=== PATIENT | female | born 1975 | race Caucasian/White ===

== ENCOUNTER 2020-08-30 14:19 | Inpatient (IN) | payer OTHER, SELFPAY ==
[2020-08-30] VITALS (14 sets, daily range): BP systolic 90–118; BP diastolic 46–73; PULSE 58–93; RESP 16–19; TEMP 36.1–36.9; O2SAT 98–100; BMI 26.5
--- NOTE | 2020-08-30 17:22 | ED.DIZZY ---
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 Patient did not have a full LOC or falling, no other neurological symptoms that the patient is complaining of. Related Data Home Medications Medication Instructions Recorded Confirmed buspirone 1 tab PO BID 08/30/20 08/30/20 quetiapine 1 tab PO BEDTIME 08/30/20 08/30/20 sertraline 1 tab PO DAILY 08/30/20 08/30/20 Allergies Allergy/AdvReac Type Severity Reaction Status Date / Time No Known Allergies Allergy Unverified 07/23/20 17:18 N.K.D.A. Allergy Unknown Uncoded 04/05/17 00:00 Review of Systems Review of Systems: All other systems are reviewed and are negative Constitutional: Reports as per HPI and Reports no additional constitutional complaints Eyes: Reports as per HPI and Reports no additional eye complaints Reports system reviewed and no additional complaints, except as documented Cardiovascular: Reports as per HPI and Reports no additional cardiovascular complaints Respiratory: Reports as per HPI and Reports no additional respiratory complaints Gastrointestinal: Reports as per HPI and Reports no additional gastrointestinal complaints Genitourinary: Reports no additional female genitourinary complaints Musculoskeletal: Reports no additional musculoskeletal complaints Skin/Breast: Reports system reviewed and no additional complaints, except as docu Psychiatric: Reports no additional psychiatric complaints Endocrine: Reports no additional endocrine complaints Hematologic/Lymphatic: Reports no additional hematologic/lymphatic complaints Allergic/Immunologic: Reports no additional allergic/immunologic complaints Reports system reviewed and no additional complaints, except as documented and Reports Abnormal speech present [facility] Past Medical History Medical History Menorrhagia (~08/30/20) Microcytic anemia Social History Social History Smoking Status: Never smoker Use of substances other than those prescribed or required for medical reasons: No Advance Directives: No Advance Directives Information Provided: No Physical Exam Vital Signs: Vital Signs: Vital Signs Temp Pulse Resp BP Pulse Ox 08/30/20 19:13 78 16 90/53 L 100 08/30/20 17:55 93 118/50 L 08/30/20 17:51 79 113/65 08/30/20 17:49 77 99/57 L 08/30/20 17:35 98.4 F 76 18 110/62 100 Body Mass Index 26.5 vital signs have been reviewed as normal and appeared to be correct. Blood pressure normal. Heart rate normal. Respiration rate normal. Temperature normal. Oxygen saturation normal. Appearance: Alert. Oriented X3. No acute distress. Head: Normal external exam. Normocephalic. Atraumatic. No Davenport signs noted. No raccoon eyes noted Eyes: PERRLA. EOMI. Conjunctiva and sclera normal. Eyelids normal. ENT: EAC normal. TM's Normal. Pharynx normal. Uvula midline. Moist mucous membranes. No trismus noted. No drooling noted. No muffled voice noted. Neck: Normal inspection. Neck supple. FROM. No adenopathy. Thyroid Normal. No meningeal signs. No neck mass noted. CVS: Normal heart rate and rhythm. Heart sound normal. No murmurs noted. Pulses normal throughout. Respiratory: No respiratory distress. Painless inspiration. Breath sounds normal. No wheezes/rales/rhonchi noted. Chest nontender. No accessory muscle usage noted or decreased air movement noted. Abdomen: Soft and nontender. Bowel sounds normal in all 4 quadrants. No distention noted. No organomegaly noted. No visible injury noted. Back: No CVA tenderness. Full range of motion noted. Skin: Skin warm and dry. Normal skin color. Normal skin turgor. No rashes/lesions/lacerations noted. Extremities: No lower extremity edema. Extremities exhibit normal range of motion. Extremities nontender. Neuro: Oriented X 3. No motor deficit. No sensory deficit. Reflexes normal. exam: Normal external vaginal inspection, no active bleed, no blood clots in a vault. Course Course Course Narrative: 44 years old female otherwise healthy, presented with generalized weakness and dizziness when she get up, patient described menorrhagia for the past 13 days which is unusual for her. Will check CBC, hydrate with IV fluids, check urine for , re-evaluate and reassess. MDM - Dizziness MDM Narrative Medical decision making narrative: assessment and plan. 44-year-old female came in with menorrhagia and symptomatic anemia ( hemoglobin of 6.8). The case discussed with Dr. Mccabe we will recommended to transfuse blood, admit overnight for observation and he will reassess her in the morning. Lab Data Attestation: I reviewed the patient's lab results. Result diagrams: 08/30/20 17:49 08/30/20 17:49 Labs: Lab Results 08/30/20 08/30/20 08/30/20 Range/Units 17:49 17:49 17:55 WBC 7.9 (4.8-10.8) X10*3/uL RBC 3.37 L (4.20-5.50) X10*6/uL Hgb 6.9 L* (12.0-16.0) g/dl Hct 24.4 L (37-47) % MCV 72.4 L (80-98) fL MCH 20.5 L (27.0-33.0) pg MCHC 28.3 L (31.0-35.0) g/dl RDW 19.7 H (11.0-16.0) % Plt Count 338 (160-400) X10*3/uL MPV 10.7 (9.4-12.3) fL Immature Gran % (Auto) 0.1 (0.0-0.4) % Neut % (Auto) 59.0 (45-73) % Lymph % (Auto) 34.1 (20-40) % [place] % (Auto) 5.6 (2-11) % Eos % (Auto) 0.6 (0-4) % Baso % (Auto) 0.6 (0-2) % Lymph # (Auto) 2.7 (1.2-4.9) X10*3/uL [place] # (Auto) 0.4 (0.1-1.2) X10*3/uL Eos # (Auto) 0.1 (0.0-0.4) X10*3/uL Baso # (Auto) 0.1 (0.0-0.2) X10*3/uL Abs Immat Gran (auto) 0.01 (0.00-0.03) X10*3/uL Absolute Neuts (auto) 4.7 (2.0-8.3) X10*3/uL Absolute Nucleated RBC 0.000 (0.0-0.012) X10*3/uL Nucleated RBC % (auto) 0.0 (0.0-0.2) /100WBC Sodium 135 (135-145) mmol/L Potassium 4.2 (3.3-5.1) mmol/l Chloride 105 (96-108) mmol/L Carbon Dioxide 24 (22-29) mmol/L Anion Gap 10 L (12-20) BUN 11 (9-16) mg/dL Creatinine 0.76 (0.5-1.4) mg/dL Estim Creat Clear Calc 83.1 Estimated GFR > 60 Random Glucose 97 (60-115) mg/dL Calcium 8.8 (8.4-10.2) mg/dL Urine Color YELLOW Urine Appearance HAZY Urine pH 8.0 (5.0-8.0) Ur Specific [place] 1.015 (1.005-1.025) Urine Protein 1+ H (NEG-TRACE) MG/DL Urine Glucose (UA) NEG (NEG) MG/DL Urine Ketones NEG (NEG) MG/DL Urine Blood NEG (NEG) Urine Nitrite POS H (NEG) Ur Leukocyte Esterase NEG (NEG) Urine RBC 0 (0) /HPF Urine WBC 10-14 H (0-4) /HPF Ur Squamous Epith Cells 1+ /LPF Urine Bacteria 4+ /LPF Urine Test NEGATIVE (NEGATIVE) Blood Type Antibody Screen Crossmatch 08/30/20 Range/Units 19:21 WBC (4.8-10.8) X10*3/uL RBC (4.20-5.50) X10*6/uL Hgb (12.0-16.0) g/dl Hct (37-47) % MCV (80-98) fL MCH (27.0-33.0) pg MCHC (31.0-35.0) g/dl RDW (11.0-16.0) % Plt Count (160-400) X10*3/uL MPV (9.4-12.3) fL Immature Gran % (Auto) (0.0-0.4) % Neut % (Auto) (45-73) % Lymph % (Auto) (20-40) % [place] % (Auto) (2-11) % Eos % (Auto) (0-4) % Baso % (Auto) (0-2) % Lymph # (Auto) (1.2-4.9) X10*3/uL [place] # (Auto) (0.1-1.2) X10*3/uL Eos # (Auto) (0.0-0.4) X10*3/uL Baso # (Auto) (0.0-0.2) X10*3/uL Abs Immat Gran (auto) (0.00-0.03) X10*3/uL Absolute Neuts (auto) (2.0-8.3) X10*3/uL Absolute Nucleated RBC (0.0-0.012) X10*3/uL Nucleated RBC % (auto) (0.0-0.2) /100WBC Sodium (135-145) mmol/L Potassium (3.3-5.1) mmol/l Chloride (96-108) mmol/L Carbon Dioxide (22-29) mmol/L Anion Gap (12-20) BUN (9-16) mg/dL Creatinine (0.5-1.4) mg/dL Estim Creat Clear Calc Estimated GFR Random Glucose (60-115) mg/dL Calcium (8.4-10.2) mg/dL Urine Color Urine Appearance Urine pH (5.0-8.0) Ur Specific [place] (1.005-1.025) Urine Protein (NEG-TRACE) MG/DL Urine Glucose (UA) (NEG) MG/DL Urine Ketones (NEG) MG/DL Urine Blood (NEG) Urine Nitrite (NEG) Ur Leukocyte Esterase (NEG) Urine RBC (0) /HPF Urine WBC (0-4) /HPF Ur Squamous Epith Cells /LPF Urine Bacteria /LPF Urine Test (NEGATIVE) Blood Type O Positive Antibody Screen NEGATIVE Crossmatch See Detail Imaging Data Pelvic ultrasound: Radiologist's impression: The right ovary is not demonstrated. There is a 6 cm heterogeneous area of solid echotexture likely arising from the uterus. This is nonspecific but statistically could represent a fibroid. Because of a history of uterine bleeding and the absence of a previous study consider a follow-up study to evaluate the entire uterine contour and identify the right ovary Scores Additional Scores NIHSS: Comment: Discharge Plan Discharge Clinical Impression: Microcytic anemia Menorrhagia Qualifiers: Menorrhagia type: with regular cycle Qualified Code(s): N92.0 - Excessive and frequent menstruation with regular cycle Patient Disposition: Admitted As Inpatient
[2020-08-30 18:05] LABS: MANUAL DIFF FLAG NO
[2020-08-30 18:06] LABS: Glucose Urine UA NEG (NEG); Leukocyte Esterase Urine NEG (NEG); Nitrite Urine POS (NEG); Specific Gravity - Urine 1.015 (1.005-1.025); Urine Blood NEG (NEG); Urine Ketones NEG (NEG); Urine Protein 1+ MG/DL (NEG-TRACE)
[2020-08-30 18:07] LABS: Appearance Urine HAZY; Color Urine YELLOW
[2020-08-30 18:08] LABS: Imm Gran Abs Auto 0.01 X10*3/uL (0.00-0.03); Imm Gran Pct Auto 0.1 % (0.0-0.4); Red Cell Distribution Width 19.7 % (11.0-16.0)
--- NOTE | 2020-08-30 18:10 | PC.NURSE ---
pt alert and oriented, skin pale in appearance, reports heavy vaginal bleeding x12 days with clots, reports dizziness getting worse
[2020-08-30 18:12] LABS: Basophils Absolute Auto 0.1 X10*3/uL (0.0-0.2); Basophils Percent Auto 0.6 % (0-2); Eosinophils Absolute Auto 0.1 X10*3/uL (0.0-0.4); Eosinophils Percent Auto 0.6 % (0-4); Hematocrit 24.4 % (37-47); Lymphocytes Absolute Auto 2.7 X10*3/uL (1.2-4.9); Lymphocytes Percent Auto 34.1 % (20-40); Mean Corpuscular HGB Conc 28.3 g/dl (31.0-35.0); Mean Corpuscular Hemoglobin 20.5 pg (27.0-33.0); Mean Corpuscular Volume 72.4 fL (80-98); Mean Platelet Volume 10.7 fL (9.4-12.3); Monocytes Absolute Auto 0.4 X10*3/uL (0.1-1.2); Monocytes Percent Auto 5.6 % (2-11); Neutrophils Absolute Auto 4.7 X10*3/uL (2.0-8.3); Platelet Count 338 X10*3/uL (160-400); Red Blood Count 3.37 X10*6/uL (4.20-5.50); White Blood Count 7.9 X10*3/uL (4.8-10.8)
[2020-08-30 18:13] LABS: Bacteria Urine 4+ /LPF; RBC Urine 0 /HPF (0); Squamous Epithelial Cell Urine 1+ /LPF; UPreg QC Valid YES; Urine Pregnancy NEGATIVE (NEGATIVE)
[2020-08-30] MEDS: 0.9 % Sodium Chloride 500 ML 1000 ML IV (18:13)
[2020-08-30] MEDS: ondansetron HCL 4 MG/2 ML VIAL IVPUSH ×2 (18:13→20:54)
[2020-08-30 18:26] LABS: Anion Gap 10 (12-20); Blood Urea Nitrogen 11 mg/dL (9-16); Calcium 8.8 mg/dL (8.4-10.2); Carbon Dioxide 24 mmol/L (22-29); Chloride 105 mmol/L (96-108); Creatinine Clr Calc Pharmacy 83.1; Estimated Glomerular Filt Rate > 60; Glucose Random 97 mg/dL (60-115); Potassium 4.2 mmol/l (3.3-5.1); Sodium 135 mmol/L (135-145)
[2020-08-30 19:52] LABS: Hemoglobin 6.9 g/dl (12.0-16.0)
--- NOTE | 2020-08-30 19:58 | US_ITS ---
EXAMINATION: PELVIC ULTRASOUND CLINICAL INFORMATION: Menorrhagia COMPARISON: None TECHNIQUE: Transcutaneous pelvic ultrasound. The patient was asked to void completely reexamined vaginally to better assess any cause for uterine bleeding FINDINGS: Transcutaneous scanning does not demonstrate any large suspicious mass or collection. There is no suspicious abnormality in the expected region of vagina. The estimated cervical length is 3.9 cm. There are circumscribed oval anechoic spaces along the cervical canal consistent with nabothian cysts. The uterus is anteverted. The uterus measures approximately 11.3 x 6.4 x 7.7 cm. The endometrium appears homogeneous and smooth. The endometrium measures approximately 0.6 cm. The myometrium is heterogeneous. There is a rounded area of altered echotexture which measures approximately 6.0 x 4.2 x 6.5 cm. This has heterogeneous internal echotexture. There is internal color signal The right ovary is not definitely identified. No suspicious mass or collection in the right adnexa. The left ovary measures approximately 5.9 x 4.2 x 3.3 cm. There is color signal present. There are multiple left ovarian cysts. The largest measures 3.1 cm. No suspicious mural nodules or thick septations. No free pelvic fluid US/US pelvic complete IMPRESSION: The right ovary is not demonstrated. There is a 6 cm heterogeneous area of solid echotexture likely arising from the uterus. This is nonspecific but statistically could represent a fibroid. Because of a history of uterine bleeding and the absence of a previous study consider a follow-up study to evaluate the entire uterine contour and identify the right ovary
--- NOTE | 2020-08-30 20:01 | PM.IMHP ---
History of Present Illness Date of Service: 08/30/20 Chief Complaint: dizziness This is a 44-year-old female with no significant past medical history who presents to the hospital complaining of dizziness. Patient reports that she has been having her period since the of this month nonstop heavy. Has used up to 90 pads until today. She reports that it only slow down about 2 days ago. She has no abdominal pain, she feels dizzy mostly when she is getting up from seated or sleeping positions. She has no palpitations. She has no headache or change in vision. She has not had any loss of consciousness. patient reports a consistent monthly menstrual cycle With no heavy periods. She usually gets her menstrual cycle the same day lasts about 1 or 2 days and ends every month. This month is the 1st time that this has happened. Patient reports no chest pain, shortness of breath, abdominal pain, nausea or vomiting, no diarrhea or constipation. She denies any urinary symptoms and no lower extremity edema. on arrival to the ED hemodynamically stable with no significant abnormal vitals labs are significant for hemoglobin 6.9, hematocrit of 24.4, MCV of 72.4, unremarkable chemistry, UA positive for nitrites and WBC patient receiving PRBC in the ED And will be admitted for further management. Past medical history: Denies past surgical history: Tubal ligation 20 years ago family history: Significant for sister who had breast cancer, otherwise no history of cancer in mother on sore any other significant family member social history: Comes from home, denies any tobacco alcohol or illicit drugs Review of Systems Review of Systems: Yes all other systems are reviewed and are negative [facility] Medical History (Updated 08/30/20 @ 20:24 by Mariano Ramirez MD) Menorrhagia (~08/30/20) Microcytic anemia Social History Smoking Status: Never smoker Use of substances other than those prescribed or required for medical reasons: No Advance Directives: No Advance Directives Information Provided: No Meds Allergies Allergy/AdvReac Type Severity Reaction Status Date / Time No Known Allergies Allergy Unverified 07/23/20 17:18 N.K.D.A. Allergy Unknown Uncoded 04/05/17 00:00 Home Medications Medication Instructions Recorded Confirmed Type buspirone 1 tab PO BID 08/30/20 08/30/20 History quetiapine 1 tab PO BEDTIME 08/30/20 08/30/20 History sertraline 1 tab PO DAILY 08/30/20 08/30/20 History Physical Exam Vital Signs and Narrative: Vital Signs: Last Vital Signs Temp 98.4 F 08/30/20 17:35 Pulse 78 08/30/20 19:13 Resp 16 08/30/20 19:13 BP 90/53 L 08/30/20 19:13 Pulse Ox 100 08/30/20 19:13 Body Mass Index 26.5 Const: General: cooperative and no acute distress Orientation/consciousness: patient oriented x3 Eyes: General: appearance normal, both eyes and all related structures Pupils: Equal, round and reactive pupils present Resp: Effort & Inspection: normal respiratory effort and able to speak in complete sentences Auscultation: clear to auscultation bilaterally Cardio: Rate: regular rate Rhythm: regular rhythm GI: Palpation (GI): Soft to palpation Auscultation: normal bowel sounds Skin: General skin exam: no rashes or lesions noted Neuro: General: patient oriented x3 Cranial nerves: Yes Equal, round and reactive pupils present Cognition (Neuro): normal cognition Extrem: General: Yes normal to inspection and Yes no pedal edema Results Labs Labs: Laboratory Tests 08/30/20 08/30/20 08/30/20 17:49 17:49 17:55 WBC 7.9 RBC 3.37 L Hgb 6.9 L* Hct 24.4 L MCV 72.4 L MCH 20.5 L MCHC 28.3 L RDW 19.7 H Plt Count 338 MPV 10.7 Immature Gran % (Auto) 0.1 Neut % (Auto) 59.0 Lymph % (Auto) 34.1 [place] % (Auto) 5.6 Eos % (Auto) 0.6 Baso % (Auto) 0.6 Lymph # (Auto) 2.7 [place] # (Auto) 0.4 Eos # (Auto) 0.1 Baso # (Auto) 0.1 Abs Immat Gran (auto) 0.01 Absolute Neuts (auto) 4.7 Absolute Nucleated RBC 0.000 Nucleated RBC % (auto) 0.0 Sodium 135 Potassium 4.2 Chloride 105 Carbon Dioxide 24 Anion Gap 10 L BUN 11 Creatinine 0.76 Estim Creat Clear Calc 83.1 Estimated GFR > 60 Random Glucose 97 Calcium 8.8 Urine Color YELLOW Urine Appearance HAZY Urine pH 8.0 Ur Specific [place] 1.015 Urine Protein 1+ H Urine Glucose (UA) NEG Urine Ketones NEG Urine Blood NEG Urine Nitrite POS H Ur Leukocyte Esterase NEG Urine RBC 0 Urine WBC 10-14 H Ur Squamous Epith Cells 1+ Urine Bacteria 4+ Urine Test NEGATIVE Blood Type Crossmatch 08/30/20 19:21 WBC RBC Hgb Hct MCV MCH MCHC RDW Plt Count MPV Immature Gran % (Auto) Neut % (Auto) Lymph % (Auto) [place] % (Auto) Eos % (Auto) Baso % (Auto) Lymph # (Auto) [place] # (Auto) Eos # (Auto) Baso # (Auto) Abs Immat Gran (auto) Absolute Neuts (auto) Absolute Nucleated RBC Nucleated RBC % (auto) Sodium Potassium Chloride Carbon Dioxide Anion Gap BUN Creatinine Estim Creat Clear Calc Estimated GFR Random Glucose Calcium Urine Color Urine Appearance Urine pH Ur Specific [place] Urine Protein Urine Glucose (UA) Urine Ketones Urine Blood Urine Nitrite Ur Leukocyte Esterase Urine RBC Urine WBC Ur Squamous Epith Cells Urine Bacteria Urine Test Blood Type O Positive Crossmatch See Detail Assessment and Plan (1) Menorrhagia: Status: Acute (2) Iron deficiency anemia: Status: Deleted (3) Dizziness: Status: Acute (4) Microcytic anemia: Status: Acute (5) UTI (urinary tract infection): Status: Acute this is a 44-year-old female with no significant past medical history who presents to the hospital with history of menorrhagia for the past 2 weeks. She also has symptomatic anemia as a result. # dizziness - secondary to anemia in the setting of menorrhagia - denies any loss of consciousness, no shortness of breath, no chest pain, no vertigo. Plan: - Receiving blood transfusion at this time - reassess symptoms once transfusion complete and before discharge # menorrhagia - unclear etiology - patient denies any similar previous history, - reports history of breast cancer in sister plan: - Will obtain transvaginal and pelvic ultrasound - consult Ob Gyne # microcytic anemia - secondary to menorrhagia - symptomatic with dizziness - Hemoglobin of 6.9 plan: - receiving PRBC in the ED - will follow H&H post transfusion - OB Gyne consult for underlying cause of menorrhagia # UTI - UA positive - will start on ceftriaxone - send urine cultures DVT prophylaxis: SCDs date of service 08/30/2020
--- NOTE | 2020-08-30 20:03 | PC.NURSE ---
PT AMBULATORY TO BATHROOM WITH STEADY GAIT, PT GAVE ANOTHER URINE SAMPLE WITH NO VISABLE BLOOD. UNSURE IF INITIAL SAMPLE HAD BEEN OBTAINED. MD LAKHANI DID A QUICK PELVIC EXAM WITH SPECULUM, NO BLEED IN AREA OR ON SPECULUM. PT REPORTS BLEEDING HAS STOPPED FOR NOW. PT DENIES DIZZINESS.
[2020-08-30] MEDS: cefTRIAXone sodium 1 GM in 0.9 % Sodium Chloride 50 ML IV (20:32)
[2020-08-30] MEDS: Lactated Ringers 1,000 ML 999 ML IVCONT (20:33)
--- NOTE | 2020-08-30 20:33 | PC.NURSE ---
SPOKE WITH HOSPITALIST WHO PLACED ORDER FOR CEFTRIAXONE. URINE CULTURE IS FINE, NO NEED FOR BLOOD CULTURES.
--- NOTE | 2020-08-30 20:45 | PC.NURSE ---
PT BEGAN TO FEEL NAUSEOUS AFTER EATING, STARTED TO VOMIT A SMALL AMOUT. REQUESTED ZACARIAS.
--- NOTE | 2020-08-30 21:49 | PC.NURSE ---
PT RETURNED FROM ULTRASOUND, BLOOD ADMINISTERED BY MARIAM NEVAREZ.
[2020-08-30] MEDS: 0.9 % Sodium Chloride 1,000 ML 100 ML IVCONT (22:52)
[2020-08-30] MEDS: busPIRone HCl 5 MG TABLET 15 MG PO (22:52)
[2020-08-30] MEDS: 0.9 % Sodium Chloride Flush 3 ML SYRINGE IVFLUSH (22:52)
[2020-08-30] MEDS: QUEtiapine Fumarate 200 MG TABLET PO (22:52)
[2020-08-31] VITALS (9 sets, daily range): BP systolic 104–122; BP diastolic 52–77; PULSE 66–84; RESP 14–19; TEMP 36.2–36.6; O2SAT 98–100; BMI 27.6; BMI 28.5
[2020-08-31 06:09] LABS: MANUAL DIFF FLAG NO
[2020-08-31 06:17] LABS: Basophils Percent Auto 0.5 % (0-2); Eosinophils Absolute Auto 0.2 X10*3/uL (0.0-0.4); Hematocrit 30.4 % (37-47); Hemoglobin 9.2 g/dl (12.0-16.0); Imm Gran Abs Auto 0.01 X10*3/uL (0.00-0.03); Imm Gran Pct Auto 0.1 % (0.0-0.4); Lymphocytes Absolute Auto 3.5 X10*3/uL (1.2-4.9); Lymphocytes Percent Auto 45.5 % (20-40); Mean Corpuscular HGB Conc 30.3 g/dl (31.0-35.0); Mean Corpuscular Hemoglobin 23.1 pg (27.0-33.0); Mean Corpuscular Volume 76.4 fL (80-98); Mean Platelet Volume 10.7 fL (9.4-12.3); Monocytes Absolute Auto 0.7 X10*3/uL (0.1-1.2); Monocytes Percent Auto 8.5 % (2-11); Neutrophils Absolute Auto 3.3 X10*3/uL (2.0-8.3); Neutrophils Percent Auto 43.4 % (45-73); Platelet Count 264 X10*3/uL (160-400); Red Blood Count 3.98 X10*6/uL (4.20-5.50); Red Cell Distribution Width 19.3 % (11.0-16.0); White Blood Count 7.6 X10*3/uL (4.8-10.8)
[2020-08-31 06:43] LABS: Anion Gap 11 (12-20); Blood Urea Nitrogen 7 mg/dL (9-16); Calcium 8.2 mg/dL (8.4-10.2); Carbon Dioxide 22 mmol/L (22-29); Chloride 110 mmol/L (96-108); Creatinine Clr Calc Pharmacy 100.7; Estimated Glomerular Filt Rate > 60; Glucose Random 82 mg/dL (60-115); Potassium 4.1 mmol/l (3.3-5.1); Sodium 139 mmol/L (135-145)
[2020-08-31] MEDS: 0.9 % Sodium Chloride Flush 3 ML SYRINGE IVFLUSH (07:23)
[2020-08-31] MEDS: 0.9 % Sodium Chloride 1,000 ML 100 ML IVCONT ×2 (08:44→20:39)
--- NOTE | 2020-08-31 08:53 | MHC.CM.PN ---
pt lives alone, she reports that she is independent in her care. 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 she does have family that lives in the area and can help her should she need it. this will include a ride home at dc. pt denies the need for vna at dc. dc plan is home no svcs. cm to cont. to follow.
--- NOTE | 2020-08-31 09:53 | P.CDIC_ITS ---
CDI Concurrent Query Service Date: 09/10/20 Documentation Clarification: Please clarify if you are treating a proba ble/suspected/likely or confirmed: Acute blood loss anemia Please specify if known wrong provider Provider Response: Other Other Diagnosis: wrong provider PLEASE DO NOT DELETE/MODIFY EXISTING CONTENT Additional information is needed in order to code to the highest accuracy and appropriate Severity of Illness (SOI). Please clarify the information noted below in your progress notes and discharge summary. Risk Factors/Clinical Indicators/Treatments Dizziness, weakness in the setting of menorrhagia transfused in Ed. HGB 6.9 BP 99/57 OBGYN consult receiving blood tranfusion, reassess once transfusion is complete. f/u h & h CDS: Shanta Yost CCS, CDIS Contact Number: [phone] Please Review the information above and exercise your independent professional judgment in responding to the query. If you concur, pleas document in the PROGRESS NOTES and DISCHARGE SUMMARY. If you do not agree with the query, please document in the query above. THIS QUERY IS PART OF THE PERMANENT MEDICAL RECORD
--- NOTE | 2020-08-31 09:56 | PM.GYNCN ---
[employer] - CN: HPI Data of Consult Requesting Physician: Daren Briseno MD Primary Care Provider: Unknown Physician Consult Narrative Narrative: Janet Chatman is a 44 year old female 0 presented the yesterday emergency room after a long 2 week history of heavy vaginal bleeding associated with blood clots. Hematocrit was 24 patient was admitted received 2 units of blood transfusion. Ultrasound done showed a 6 x 6.5 cm myoma and simple ovarian cyst. Last Pap smear was 6 months ago last mammogram was 2 years ago according to the patient. cc:: CC: Daren Briseno MD Meds Allergies Allergy/AdvReac Type Severity Reaction Status Date / Time No Known Allergies Allergy Verified 08/31/20 01:19 Home Medications Medication Instructions Recorded Confirmed Type buspirone 1 tab PO BID 08/30/20 08/30/20 History quetiapine 1 tab PO BEDTIME 08/30/20 08/30/20 History sertraline 1 tab PO DAILY 08/30/20 08/30/20 History [employer] - Results Labs CBC & Chem 7: 08/31/20 05:29 08/31/20 05:29 Labs: Short CBC 08/30/20 08/31/20 Range/Units 17:49 05:29 WBC 7.9 7.6 (4.8-10.8) X10*3/uL Hgb 6.9 L* 9.2 L D (12.0-16.0) g/dl Hct 24.4 L 30.4 L D (37-47) % Plt Count 338 264 (160-400) X10*3/uL BMP 08/30/20 08/31/20 17:49 05:29 Sodium 135 139 Potassium 4.2 4.1 Chloride 105 110 H Carbon Dioxide 24 22 BUN 11 7 L Creatinine 0.76 0.65 Calcium 8.8 8.2 L Urine 08/30/20 Range/Units 17:55 Urine Color YELLOW Urine Appearance HAZY Urine pH 8.0 (5.0-8.0) Ur Specific [place] 1.015 (1.005-1.025) Urine Protein 1+ H (NEG-TRACE) MG/DL Urine Glucose (UA) NEG (NEG) MG/DL Urine Test NEGATIVE (NEGATIVE) Antibody Screen Antibody Screen NEGATIVE 08/30/20 19:21 Assessment and Plan (1) Menorrhagia: Qualifiers: Menorrhagia type: with regular cycle Qualified Code(s): N92.0 - Excessive and frequent menstruation with regular cycle Status: Acute Discussed with the patient the different causes of abnormal bleeding including thyroid, prolactin disorders, uterine and ovarian pathology, endometrial hyperplasia , carcinoma and other potential causes. Discussed with the patient the work up including CBC (to r/o anemia), TSH, pelvic Ultrasound, HCG all done, endometrial biopsy to r/o endometrial pathology. All questions answered and the patient verbalized understanding will have w/u done and EMB scheduled will check the results and treat accordingly. Discussed with the patient the results of the work up done and options of treatment including Lysteda, control pills, Mirena IUD, endometrial ablation and hysterectomy. All pros, cons, risks and benefits if each option was discussed with the patient and the patient decided to go ahead with Mirena IUD so a more detailed discussion about it was conducted including mechanism of action, risks (uterine perforation, infection, injury to bladder, bowel, displacement, and others) benefits (hypo menorrhea, amenorrhea, ...). GC/CT were taken and IUD inserted see procedure note. Before the procedure was started, discussed with the patient the endometrial biopsy procedure technique, alternatives (do nothing, hysteroscopy, or pelvic US), & all the risks associated with the procedure including but not limited to: bleeding , infection, uterine perforation, injury to bladder, vessels, bowels, possible need for transfusion with all its risks, and others. All questions were answered, the patient verbalized understanding and signed the consent. A speculum inserted inside the patient's vagina, the cervix was prepped with betadine. Then the Cervix was grasped with single tooth tenaculum, the uterus was sounded to 8 cm, a 4 mm Pipelle was advanced without difficulty, with good return of tissue. Post procedure, the patient tolerated procedure well. The patient was discharged with the following instructions: to call if temp>100.4, abdominal pain, nausea and vomiting, vaginal bleeding. The following restrictions were given to the patient, nothing per vagina including but not limited to tampon use or intercourse, no bathtub use for 2 weeks. (2) Microcytic anemia: Status: Acute instructed the patient to start iron sulfate 1 tablet p.o. b.i.d. a repeat CBC in 3 (3) Myoma: Status: Acute Discussed with the patient the findings on pelvic ultrasound, the risk of myoarcoma, symptoms that can be caused by myoma including pressure symptoms, menorrhagia, pelvic pain , or rapid growth suspicious of sarcoma will repeat US in 3 months for size follow-up. The patient verbalized understanding and agreed with the plan. ultrasound ordered for 3 months patient has an appointment in 3 months for follow-up (4) Encounter for IUD insertion: Status: Acute The patient is presenting for Mirena IUD insertion. Her last menstrual period was within the last 5 days, Urine test was done in the office and was negative; All the contraindications were excluded. The following possible complications were discussed with the patient: Intrauterine , Ectopic , Sepsis, Pelvic Infection, Irregular Bleeding and Amenorrhea, Perforation, Expulsion, Ovarian Cysts, Breast Cancer, The following adverse effects were discussed with the patient: alteration of menstrual bleeding pattern, including: unscheduled uterine bleeding decreased uterine bleeding increased scheduled uterine bleeding female genital tract bleeding ,amenorrhea , genital discharge , vulvovaginitis , breast pain , benign ovarian cyst and associated complications , dysmenorrhea , Gastrointestinal disorders abdominal/pelvic pain, headache/migraine , back pain , acne , depression Alternative options were discussed with the patient including but not limited: control pills, patch, NuvaRing, Depo-medroxyprogesterone acetate, Nexplanon, copper IUD, sterilization, vasectomy, others The procedure was explained in detail to patient , at the end patient signed the informed consent obtained. A no touch technique was used throughout the procedure. A speculum was placed into vagina and cervix was cleaned with betadine). A tenaculum was placed. A plastic sound was advanced through the external and internal os until it reached the fundus of the uterus, the depth was 8 cm. The sound was then withdrawn. The IUD was loaded in a sterile manner and advanced into position. The string was visualized and cut to 3 cm. Tenaculum site hemostatic. All instruments removed from vagina. Patient tolerated the procedure well. NO complications were noted. Patient was instructed to call for fever over 100.4, significant pain unrelieved by Motrin, IUD expulsion, heavy bleeding, or abnormal discharge. In addition, the following clinical considerations were discussed with the patient to call for removal: A stroke or heart attack ,Very severe or migraine headaches ,Unexplained fever ,Yellowing of the skin or whites of the eyes, as these may be signs of serious liver problems , or suspected , Pelvic pain or pain during sex ,HIV positive seroconversion in herself or her partner , Possible exposure to sexually transmitted infections Unusual vaginal discharge or genital sores , severe vaginal bleeding or bleeding that lasts a long time, or if she misses a menstrual period, Inability to feel Mirena's threads Counseled the patient that the IUD does not protect against STI's, recommended use of condoms for the first 7 days post insertion and explained to the patient that condoms are recommended for patients at risk for sexually transmitted infections. Follow up appointment made for 6 weeks following insertion.
--- NOTE | 2020-08-31 12:26 | PC.NURSE ---
pt states after using the br she passed a medium sized blood clot. spoke w dr cano and sent msg to dr yates as well. per dr yates he inserted an iud and performed an endometrial biopsy and states as long as pt is not actively bleeding it is ok. will continue to monitor.
[2020-08-31] MEDS: Ferrous Sulfate 300 MG/5 ML LIQUID PO ×2 (13:51→16:10)
--- NOTE | 2020-08-31 15:51 | HO.PM.IMPN ---
Subjective Subjective Date of Service: 08/31/20 Interval History: patient seen and examined at bedside with daughter at bedside patient still reporting dizziness Constitutional Constitutional: Reports weakness Cardiovascular Cardiovascular: Reports lightheadedness and Denies dyspnea Respiratory Respiratory: Denies dyspnea Gastrointestinal Gastrointestinal: Denies vomiting Neurologic Neurologic: Reports weakness Physical Exam Vital Signs: Vital Signs: Vital Signs Temp Pulse Resp BP Pulse Ox 08/31/20 11:26 97.7 F 76 18 121/77 99 08/31/20 08:00 97.5 F 66 18 113/59 L 100 08/31/20 04:07 97.6 F 68 16 119/72 08/31/20 03:16 97.6 F 69 19 111/52 L 100 08/31/20 01:16 97.7 F 67 16 122/63 08/31/20 00:58 97.8 F 66 18 104/55 L 08/30/20 23:19 85 115/59 L 08/30/20 23:17 72 103/68 08/30/20 23:16 64 110/57 L 08/30/20 23:14 97.0 F 66 19 110/57 L 100 08/30/20 23:10 97.0 F 66 19 110/57 L 08/30/20 22:56 98.0 F 58 16 118/73 08/30/20 22:00 98.1 F 71 16 105/55 L 08/30/20 21:50 98.1 F 80 16 106/46 L 98 08/30/20 21:42 98.1 F 80 16 106/46 L 08/30/20 19:13 78 16 90/53 L 100 08/30/20 17:55 93 118/50 L 08/30/20 17:51 79 113/65 08/30/20 17:49 77 99/57 L 08/30/20 17:35 98.4 F 76 18 110/62 100 Body Mass Index 28.5 Const: General: cooperative and no acute distress Orientation/consciousness: patient oriented x3 Eyes: General: appearance normal, both eyes and all related structures Pupils: Equal, round and reactive pupils present Resp: Effort & Inspection: normal respiratory effort and able to speak in complete sentences Auscultation: clear to auscultation bilaterally Cardio: Rate: regular rate Rhythm: regular rhythm GI: Palpation (GI): Soft to palpation Auscultation: normal bowel sounds Skin: General skin exam: no rashes or lesions noted Neuro: General: patient oriented x3 Cranial nerves: Yes Equal, round and reactive pupils present Cognition (Neuro): normal cognition Extrem: General: Yes normal to inspection and Yes no pedal edema Objective Data Current Medications Generic Name Dose Route Start Last Admin Trade Name Freq PRN Reason Stop Dose Admin Acetaminophen 650 mg 08/30/20 22:07 Acetaminophen 325 Mg Tablet PO Q6H PRN Pain, Mild (Pain Scale 1-3) Buspirone HCl 15 mg 08/30/20 22:07 08/31/20 07:28 Buspirone Hcl 5 Mg Tablet PO Not Given BID STEPHANY Docusate Sodium 100 mg 08/30/20 22:07 Docusate Sodium 100 Mg Capsule PO DAILY PRN Constipation Ferrous Sulfate 300 mg 08/31/20 12:00 08/31/20 13:51 Ferrous Sulfate 300 Mg/5 Ml Liquid PO 300 mg TIDWM STEPHANY Administration Ceftriaxone Sodium 1 gm/ 50 mls @ 100 mls/hr 08/30/20 21:00 08/30/20 22:42 Sodium Chloride IV Infused Q24H STEPHANY Infusion Sodium Chloride 1,000 mls @ 100 mls/hr 08/30/20 22:07 08/31/20 08:44 Ns IVCONT 100 mls/hr .Q10H STEPHANY Administration Ondansetron HCl 4 mg 08/30/20 20:46 08/30/20 20:54 Ondansetron Hcl 4 Mg/2 Ml Vial IVPUSH 4 mg Q8H PRN Administration Nausea and Vomiting Quetiapine Fumarate 200 mg 08/30/20 22:07 08/30/20 22:52 Quetiapine Fumarate 200 Mg Tablet PO 200 mg BEDTIME STEPHANY Administration Sertraline HCl 100 mg 08/31/20 09:00 08/31/20 07:28 Sertraline Hcl 100 Mg Tablet PO Not Given DAILY STEPHANY Sodium Chloride 3 ml 08/31/20 00:00 08/31/20 07:23 0.9 % Sodium Chloride Flush 3 Ml Syringe IVFLUSH 3 ml QSHIFT STEPHANY Administration Labs CBC & Chem 7: 08/31/20 05:29 08/31/20 05:29 Microbiology Microbiology Results: Microbiology 08/30/20 18:09 Urine clean catch - Clean Catch Midstream Urine Culture - Preliminary Gram negative conrado Assessment and Plan (1) Menorrhagia: Status: Acute (2) Iron deficiency anemia: Status: Deleted (3) Dizziness: Status: Acute (4) Microcytic anemia: Status: Acute (5) UTI (urinary tract infection): Status: Acute Assessment and Plan: this is a 44-year-old female with no significant past medical history who presents to the hospital with history of menorrhagia for the past 2 weeks. She also has symptomatic anemia as a result. 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
[2020-08-31] MEDS: cefTRIAXone sodium 1 GM in 0.9 % Sodium Chloride 50 ML IV (20:39)
[2020-09-01 04:00] VITALS: BP 113/55; PULSE 69; RESP 18; TEMP 36.2; O2SAT 99
[2020-09-01 06:00] VITALS: BMI 28.3
[2020-09-01 06:34] LABS: MANUAL DIFF FLAG NO
[2020-09-01 07:06] LABS: Basophils Absolute Auto 0.1 X10*3/uL (0.0-0.2); Basophils Percent Auto 0.8 % (0-2); Eosinophils Absolute Auto 0.2 X10*3/uL (0.0-0.4); Eosinophils Percent Auto 2.9 % (0-4); Hematocrit 31.1 % (37-47); Hemoglobin 9.3 g/dl (12.0-16.0); Imm Gran Abs Auto 0.02 X10*3/uL (0.00-0.03); Imm Gran Pct Auto 0.3 % (0.0-0.4); Lymphocytes Absolute Auto 2.8 X10*3/uL (1.2-4.9); Mean Corpuscular HGB Conc 29.9 g/dl (31.0-35.0); Mean Corpuscular Hemoglobin 22.6 pg (27.0-33.0); Mean Corpuscular Volume 75.5 fL (80-98); Mean Platelet Volume 11.1 fL (9.4-12.3); Monocytes Absolute Auto 0.6 X10*3/uL (0.1-1.2); Monocytes Percent Auto 7.6 % (2-11); Neutrophils Absolute Auto 4.1 X10*3/uL (2.0-8.3); Neutrophils Percent Auto 52.4 % (45-73); Platelet Count 289 X10*3/uL (160-400); Red Blood Count 4.12 X10*6/uL (4.20-5.50); Red Cell Distribution Width 19.8 % (11.0-16.0); White Blood Count 7.9 X10*3/uL (4.8-10.8)
[2020-09-01 07:34] VITALS: BP 110/71; PULSE 80; RESP 18; TEMP 36.6; O2SAT 100
[2020-09-01] MEDS: Docusate Sodium 100 MG CAPSULE PO (07:56)
[2020-09-01] MEDS: 0.9 % Sodium Chloride 1,000 ML 100 ML IVCONT (07:56)
[2020-09-01] MEDS: Ferrous Sulfate 300 MG/5 ML LIQUID PO ×2 (07:56→12:38)
[2020-09-01] MEDS: 0.9 % Sodium Chloride Flush 3 ML SYRINGE IVFLUSH (07:58)
[2020-09-01 11:43] VITALS: BP 117/75; PULSE 64; RESP 18; TEMP 36.1; O2SAT 100
[2020-09-01] MEDS: polyethylene glycoL 3350 17 GM POWD.PACK PO (12:38)
--- NOTE | 2020-09-01 14:15 | P.DS_ITS ---
DS: Providers Provider Date of admission: 08/30/20 19:58 Primary care physician: Unknown Physician Consults: 08/30/20 22:07 Consult to Obstetrics / Gynecology Routine Consulting Provider: Rafael Mccabe Reason for consultation: menorrhagia DS: Diagnosis Discharge Diagnosis (1) Menorrhagia: Status: Acute (2) Dizziness: Status: Acute (3) Microcytic anemia: Status: Acute (4) UTI (urinary tract infection): Status: Acute DS: Summary Hospital Course Hospital Course: Hpi:44-year-old female with no significant past medical history who presents to the hospital complaining of dizziness. Patient reports that she has been having her period since the 12th of this month nonstop heavy. Has used up to 90 pads until today. She reports that it only slow down about 2 days ago. She has no abdominal pain, she feels dizzy mostly when she is getting up from seated or sleeping positions. She has no palpitations. She has no headache or change in vision. She has not had any loss of consciousness. patient reports a consistent monthly menstrual cycle With no heavy periods. She usually gets her menstrual cycle the same day lasts about 1 or 2 days and ends every month. This month is the 1st time that this has happened. Patient reports no chest pain, shortness of breath, abdominal pain, nausea or vomiting, no diarrhea or constipation. She denies any urinary symptoms and no lower extremity edema. on arrival to the ED hemodynamically stable with no significant abnormal vitals labs are significant for hemoglobin 6.9, hematocrit of 24.4, MCV of 72.4, unremarkable chemistry, UA positive for nitrites and WBC patient receiving PRBC in the ED And will be admitted for further management. Hospital course problem section: Admitted for acute blood loss anemia secondary to menometrorrhagia and fibroids. hemoglobin around 6.4 on admission received 2 units of PRBCs hemoglobin improved to 9.2 ultrasound pelvis shows uterine fibroids marketing database analyst consulted inserted IUD Subsequently bleeding.-discussed with the Railway Signalling Engineer Dr Mccabe : Patient will go home with the iron and further management needs to followed up outpatient. Uti: Started on ceftriaxone and urine culture was sent: urine culture grew E . coli: Switched to p.o. Ceftin upon discharge . Above management discussed with the patient in detail length she understand and in agreement with the above plan, time spent 50 minutes and 50% time spent on counseling. Significant findings: As above. Procedures performed: None. Treatment and response: As above. Complications: None. Time Spent with Patient Time attestation: Total time spent providing and/or coordinating discharge services: Physical Exam Vital Signs: Vital Signs: Vital Signs Temp Pulse Resp BP Pulse Ox 09/01/20 11:43 97.0 F 64 18 117/75 100 09/01/20 07:34 97.8 F 80 18 110/71 100 09/01/20 04:00 97.2 F 69 18 113/55 L 99 08/31/20 23:37 97.9 F 84 18 110/63 98 08/31/20 19:36 97.1 F 80 16 118/67 100 08/31/20 15:53 97.1 F 84 14 117/61 100 Body Mass Index 28.3 Physical exam: Cvs: rrr, [id number] , no murmur res: clear to auscultation ,no rhonchii or wheezing abd: no rebound or guarding ,nt, bs present. ext pulses present , no cyanosis neuro: axo3 , nonfocal. DS: Data Data Completed and Pending Labs on day of discharge: Labs from last 24 hours 09/01/20 05:29 WBC 7.9 RBC 4.12 L Hgb 9.3 L Hct 31.1 L MCV 75.5 L MCH 22.6 L MCHC 29.9 L RDW 19.8 H Plt Count 289 MPV 11.1 Immature Gran % (Auto) 0.3 Neut % (Auto) 52.4 Lymph % (Auto) 36.0 Rogers % (Auto) 7.6 Eos % (Auto) 2.9 Baso % (Auto) 0.8 Lymph # (Auto) 2.8 Rogers # (Auto) 0.6 Eos # (Auto) 0.2 Baso # (Auto) 0.1 Abs Immat Gran (auto) 0.02 Absolute Neuts (auto) 4.1 Absolute Nucleated RBC 0.000 Nucleated RBC % (auto) 0.0 Discharge Plan Discharge Patient Disposition: Home, Self-Care Referrals: Physician,Unknown [Primary Care Provider] - Discharge Medications: New ferrous sulfate 325 mg (65 mg iron) tablet 325 mg PO BID Qty: 60 RF: 0 cefuroxime axetil 250 mg tablet 250 mg PO Q12H Qty: 10 RF: 0 Continued sertraline 100 mg tablet 1 tab PO DAILY RF: 0 quetiapine 200 mg tablet 1 tab PO BEDTIME RF: 0 buspirone 15 mg tablet 1 tab PO BID RF: 0 Discharge Orders: Discharge Order (Routine); Ordered 09/01/20 Ordered By: Ladi Rios Diet: advance to your usual diet Activity on Discharge: As tolerated Discharge Date/Time: 09/01/20 15:42 Visit Report Forms: Patient Portal Discharge page Care Plan Goals: Patient came with vaginal bleeding-probably secondary to menometrorrhagia, fibroid. Subsequently seen by marketing database analyst Dr Mccabe and IUD was placed: Her bleeding stopped. Patient has had hematocrit was 6.7 initially which improved with PRBC: improved to 9.3 range . Patient is to follow-up with marketing database analyst out patiently further management outpatient, added iron. Health Concerns: As above. Plan of Treatment: As above.
--- NOTE | 2020-09-01 14:49 | MHC.CM.PN ---
Patient will be discharged home today no services. family will provide transportation.
== END 2020-09-01 15:42 | disposition home or self-care (01) | DRG 532 ==
LOC: HO.ED 20:45 → HO.IMC 21:12
PROVIDERS: Internal Medicine; Admitting Provider Internal Medicine; Emergency Provider Emergency Medicine; Visit Provider Internal Medicine
DX: N92.0 Excessive and frequent menstruation with regular cycle (principal); D62 Acute posthemorrhagic anemia; N39.0 Urinary tract infection, site not specified; D25.9 Leiomyoma of uterus, unspecified; Z30.430 Encounter for insertion of intrauterine contraceptive device; Z79.899 Other long term (current) drug therapy
CPT/HCPCS: 36415; 36430; 76830; 76856; 80048; 81001; 81025; 85025; 86850; 86900; 86901; 86920; 86923; 87086; 87088; 87186; 96374; 99219; 99285; J2405; J7298; P9016

== ENCOUNTER 2020-08-31 10:39 | Outpatient (REF) | payer OTHER, SELFPAY ==
[2020-09-01 01:50] LABS: CT PCR NOT DETECTED (Not Detect.); NG PCR NOT DETECTED (Not Detect.)
== END 2020-08-31 10:40 | disposition home or self-care (01) ==
LOC: HO.LAB 10:39
PROVIDERS: Visit Provider Obstetrics & Gynecology
DX: N92.0 Excessive and frequent menstruation with regular cycle (principal); D50.9 Iron deficiency anemia, unspecified
CPT/HCPCS: 87491; 87591; 88305

== ENCOUNTER 2020-09-10 08:34 | Outpatient (REF) | payer OTHER, SELFPAY | END 2020-09-10 08:35 | disposition home or self-care (01) | LOC: HO.LAB 08:34 | PROVIDERS: Visit Provider Internal Medicine | DX: Z20.828 Contact with and (suspected) exposure to other viral communicable diseases (principal) | CPT/HCPCS: C9803; U0003 ==

== ENCOUNTER 2020-11-26 10:28 | Outpatient (REF) | payer OTHER, SELFPAY ==
--- NOTE | 2020-11-26 10:32 | US_ITS ---
EXAMINATION: US PELVIS COMPLETE US PELVIS TRANSVAGINAL CLINICAL INFORMATION: Menorrhagia. COMPARISON: Pelvic ultrasound dated 08/30/2020 TECHNIQUE: Transabdominal and transvaginal imaging was performed. FINDINGS: The uterus is prominent measuring 12.7 x 7.3 x 8.3 cm for a volume of 402.4 mL. Redemonstration of a fundal fibroid measuring 5.1 x 4.9 x 5.2 cm (previously 6 x 4.2 x 6.5 cm). Right uterine body probable fibroid measuring 1.6 x 1.1 x 1.4 cm, not seen on the prior examination. Endometrium not seen due to the prominent fibroid. There are nabothian cysts. The right ovary measures 3.9 x 1.7 x 2.5 cm for a volume of 8.7 mL. There is a right ovarian follicle versus cyst measuring 2.3 cm. The left ovary measures 7.3 x 3.8 x 5.4 cm for a volume of 77.8 mm. There are left ovarian cysts measuring 4.6 x 3.5 x 4.6 cm and 3.1 x 2.6 x 3.4 cm. There is trace pelvic free fluid. US/US pelvic complete IMPRESSION: 1. Prominent uterine fibroid redemonstrated, slightly decreased in size when compared to the prior examination now measuring 5.2 cm (previously 6.5 cm). Additional right uterine body fibroid measuring 1.6 cm, not seen on the prior examination. Endometrium obscured by fibroid. 2. Simple-appearing left ovarian cyst measuring 4.6 and 3.4 cm. 3. Right ovarian follicle versus cyst measuring 2.3 cm. 4. Trace pelvic free fluid.
== END 2020-11-26 10:29 | disposition home or self-care (01) ==
LOC: HO.US 10:28
PROVIDERS: Visit Provider Obstetrics & Gynecology
DX: D21.9 Benign neoplasm of connective and other soft tissue, unspecified (principal)
CPT/HCPCS: 76830; 76856

== ENCOUNTER → 2020-12-16 11:52 | Outpatient (BNVA) | payer OTHER, SELFPAY | PROVIDERS: Visit Provider Obstetrics & Gynecology ==

== ENCOUNTER → 2021-01-14 13:47 | Outpatient (BNVA) | payer OTHER, SELFPAY | PROVIDERS: Visit Provider Advanced Practice Midwife ==

== ENCOUNTER 2021-02-01 13:52 | Outpatient (REF) | payer OTHER, SELFPAY ==
--- NOTE | ~2021-02-01 | US_ITS ---
EXAMINATION: ULTRASOUND PELVIS COMPLETE. CLINICAL INFORMATION: Ovarian cyst. COMPARISON: Ultrasound pelvis complete 11/26/2020 TECHNIQUE: Transabdominal and transvaginal ultrasound of the pelvis is performed. FINDINGS: The uterus is anteverted measuring 10.78 cm in length, 7.2 cm in AP and 8.0 cm in transverse dimension. There are 2 hypoechoic lesions. 1. Smaller lesion in the mid anterior uterus measures 1.31 x 1.30 x 1.70 cm. Previously it measured 1.6 x 1.1 x 1.4 cm. 2. Larger lesion in the anterior fundus and body of uterus measures 5.0 x 5.0 x 6.3 cm. Previously it measured 5.1 x 4.9 x 5.2 cm. There are several anechoic nabothian cysts seen. The right ovary measures 3.0 x 1.2 x 1.5 cm and volume 2.8 mL. It appears unremarkable. Previously right ovary measured 3.9 x 1.7 x 2.5 cm. Left ovary measures 2.1 x 2.3 x 2.1 mL and volume 5.3 mL. Previously left ovary measured 7.3 x 3.8 x 5.4 cm. There is no free fluid in the cul-de-sac. US/US pelvic complete IMPRESSION: 1. Stable 2 uterine fibroids. 2. The ovaries are unremarkable. 3. Small nabothian cysts in the cervix similar to previous study.
--- NOTE | ~2021-02-01 | US_ITS ---
EXAMINATION: ULTRASOUND PELVIS COMPLETE. CLINICAL INFORMATION: Ovarian cyst. COMPARISON: Ultrasound pelvis complete 11/26/2020 TECHNIQUE: Transabdominal and transvaginal ultrasound of the pelvis is performed. FINDINGS: The uterus is anteverted measuring 10.78 cm in length, 7.2 cm in AP and 8.0 cm in transverse dimension. There are 2 hypoechoic lesions. 1. Smaller lesion in the mid anterior uterus measures 1.31 x 1.30 x 1.70 cm. Previously it measured 1.6 x 1.1 x 1.4 cm. 2. Larger lesion in the anterior fundus and body of uterus measures 5.0 x 5.0 x 6.3 cm. Previously it measured 5.1 x 4.9 x 5.2 cm. There are several anechoic nabothian cysts seen. The right ovary measures 3.0 x 1.2 x 1.5 cm and volume 2.8 mL. It appears unremarkable. Previously right ovary measured 3.9 x 1.7 x 2.5 cm. Left ovary measures 2.1 x 2.3 x 2.1 mL and volume 5.3 mL. Previously left ovary measured 7.3 x 3.8 x 5.4 cm. There is no free fluid in the cul-de-sac. US/US transvaginal IMPRESSION: 1. Stable 2 uterine fibroids. 2. The ovaries are unremarkable. 3. Small nabothian cysts in the cervix similar to previous study.
== END 2021-02-01 13:53 | disposition home or self-care (01) ==
LOC: HO.US 13:52
PROVIDERS: Visit Provider Advanced Practice Midwife
DX: N92.0 Excessive and frequent menstruation with regular cycle (principal)
CPT/HCPCS: 76830; 76856

== ENCOUNTER → 2021-02-03 14:57 | Outpatient (BNVA) | payer OTHER, SELFPAY | PROVIDERS: Visit Provider Advanced Practice Midwife ==

== ENCOUNTER → 2021-02-05 15:13 | Outpatient (BNVA) | payer OTHER, SELFPAY | PROVIDERS: Visit Provider Advanced Practice Midwife ==

== ENCOUNTER 2021-03-05 08:32 | Outpatient (REF) | payer OTHER, SELFPAY ==
--- NOTE | ~2021-03-05 | XR_ITS ---
EXAMINATION: XR ABDOMEN KUB CLINICAL INDICATION: Unsuspected complication of the genitourinary system COMPARISON: Previous pelvic ultrasound most recent January 2021 TECHNIQUE: AP view of the abdomen. FINDINGS: The bowel gas pattern is normal. There is no evidence of free air. No calcifications are seen. No IUD is seen. There is mild curvature of the lumbar spine to the right. Bony structures are otherwise unremarkable. XR/XR abdomen 1V IMPRESSION: Unremarkable examination. No IUD seen.
[2021-03-05 09:56] LABS: Hematocrit 32.6 % (37-47); Hemoglobin 9.4 g/dl (12.0-16.0); Mean Corpuscular HGB Conc 28.8 g/dl (31.0-35.0); Mean Corpuscular Volume 79.7 fL (80-98); Mean Platelet Volume 11.4 fL (9.4-12.3); Platelet Count 313 X10*3/uL (160-400); Red Blood Count 4.09 X10*6/uL (4.20-5.50); Red Cell Distribution Width 15.9 % (11.0-16.0); White Blood Count 6.5 X10*3/uL (4.8-10.8)
== END 2021-03-05 08:33 | disposition home or self-care (01) ==
LOC: HO.LAB 08:32
PROVIDERS: Visit Provider Advanced Practice Midwife
DX: N92.0 Excessive and frequent menstruation with regular cycle (principal); T83.9XXA Unspecified complication of genitourinary prosthetic device, implant and graft, initial encounter
CPT/HCPCS: 36415; 74018; 85027

== ENCOUNTER → 2021-03-10 10:41 | Outpatient (BNVA) | payer OTHER, SELFPAY | PROVIDERS: Visit Provider Advanced Practice Midwife ==

== ENCOUNTER → 2021-03-24 13:50 | Outpatient (BNVA) | payer OTHER, SELFPAY | PROVIDERS: Visit Provider Advanced Practice Midwife | DX: N92.0 Excessive and frequent menstruation with regular cycle (principal) | CPT/HCPCS: 96372; 99211; J1050 ==

== ENCOUNTER 2021-05-12 08:03 | Outpatient (REF) | payer OTHER, SELFPAY ==
[2021-05-12 14:31] LABS: CT PCR NOT DETECTED (Not Detect.); NG PCR NOT DETECTED (Not Detect.)
[2021-05-13 08:52] LABS: BV Int Neg Control Negative (Negative); BV Int Pos Control Positive (Positive)
== END 2021-05-12 08:04 | disposition home or self-care (01) ==
LOC: HO.LAB 08:03
PROVIDERS: Visit Provider Advanced Practice Midwife
DX: Z11.3 Encounter for screening for infections with a predominantly sexual mode of transmission (principal); N89.8 Other specified noninflammatory disorders of vagina; N92.0 Excessive and frequent menstruation with regular cycle; Z20.2 Contact with and (suspected) exposure to infections with a predominantly sexual mode of transmission
CPT/HCPCS: 87480; 87491; 87510; 87591; 87660; 99212

== ENCOUNTER → 2021-06-10 10:40 | Outpatient (BNVA) | payer OTHER, SELFPAY | PROVIDERS: Visit Provider Advanced Practice Midwife | DX: N92.0 Excessive and frequent menstruation with regular cycle (principal) | CPT/HCPCS: 96372; 99211 ==

== ENCOUNTER 2021-06-15 09:44 | Outpatient (REF) | payer OTHER, SELFPAY ==
[2021-06-15 11:51] LABS: Hematocrit 28.9 % (37-47); Hemoglobin 8.6 g/dl (12.0-16.0); Mean Corpuscular HGB Conc 29.8 g/dl (31.0-35.0); Mean Corpuscular Hemoglobin 22.6 pg (27.0-33.0); Mean Corpuscular Volume 75.9 fL (80-98); Platelet Count 287 X10*3/uL (160-400); Red Blood Count 3.81 X10*6/uL (4.20-5.50); Red Cell Distribution Width 21.6 % (11.0-16.0); White Blood Count 6.1 X10*3/uL (4.8-10.8)
[2021-06-15 12:28] LABS: HBsAGNum1 0.24 S/CO (0.00-0.99); HIV AB/AG Nonreactive (Nonreactive); Hepatitis B Surface Antigen Negative (Negative); ~HepC Num1 0.12 S/CO (0.00-0.79); ~Hepatitis C Antibody Nonreactive (Nonreactive)
[2021-06-15 12:31] LABS: HCG Quantitative < 2 mIU/mL; TSH reflex Free T4 1.03 uIU/mL (0.32-4.0)
[2021-06-16 09:12] LABS: Syphilis Screen Nonreactive (Nonreactive)
== END 2021-06-15 09:45 | disposition home or self-care (01) ==
LOC: HO.LAB 09:44
PROVIDERS: Absent Provider Advanced Practice Midwife; Visit Provider Obstetrics & Gynecology
DX: N93.9 Abnormal uterine and vaginal bleeding, unspecified (principal); N89.8 Other specified noninflammatory disorders of vagina; N92.1 Excessive and frequent menstruation with irregular cycle; Z20.2 Contact with and (suspected) exposure to infections with a predominantly sexual mode of transmission
CPT/HCPCS: 36415; 58100; 84443; 84702; 85027; 86780; 86803; 87340; 87389; 88305; 99212

== ENCOUNTER 2021-06-21 13:21 | Outpatient (REF) | payer OTHER, SELFPAY | END 2021-06-21 13:22 | disposition home or self-care (01) | LOC: HO.LAB 13:21 | PROVIDERS: Visit Provider Obstetrics & Gynecology | DX: N92.1 Excessive and frequent menstruation with irregular cycle (principal) | CPT/HCPCS: 58100; 88305 ==

== ENCOUNTER → 2021-06-24 13:05 | Outpatient (BNVA) | payer OTHER, SELFPAY | PROVIDERS: Visit Provider Obstetrics & Gynecology | DX: Z01.818 Encounter for other preprocedural examination (principal); N92.0 Excessive and frequent menstruation with regular cycle | CPT/HCPCS: 99212 ==

== ENCOUNTER 2021-06-25 10:16 | Day surgery (SDC) | payer OTHER, SELFPAY ==
--- NOTE | 2021-06-24 08:54 | HO.ANESPROP2 ---
Documented by User: Juliana Huerta NP 06/24/21 08:54 HPI - Anesthesia Eval Consult details Narrative: 45yo F for Uterine Ablation w/Bearasure PMFSH Active Problems Active Problems: All Active Problems (Updated 06/15/21 @ 10:27 by Rafael Mccabe MD) Menometrorrhagia (Acute) Problematic vaginal discharge (Acute) Potential exposure to STD (Acute) Encounter to discuss test results (Acute) Heavy menstrual bleeding (Acute) Bacterial vaginosis (Acute) Anemia (Acute) Myoma (Acute) Screening mammogram, encounter for (Acute) Encounter for IUD insertion (Acute) UTI (urinary tract infection) (Acute) Menorrhagia (Acute ~08/30/20) Past Medical History Medical History Depression Dizziness Menorrhagia (~08/30/20) Microcytic anemia Myoma Surgical History Surgical History H/O tubal ligation Social History Social History Household Members: Family Housing: House Do you presently have visiting nurse or other home services: No Patient Tobacco Use Status: Never used Tobacco Second Hand Smoke Exposure: No Use of substances other than those prescribed or required for medical reasons: No Are you DNR?: No Advance Directives: No Advance Directives Information Provided: Yes Advance Directives on File: No service: No Current occupational status: employed Sexual orientation: Straight/Heterosexual Gender identity: Female Meds Allergies Allergy/AdvReac Type Severity Reaction Status Date / Time No Known Allergies Allergy Verified 06/24/21 13:12 Home Medications Medication Instructions Recorded Confirmed Last Taken Type buspirone 15 mg tablet 1 tab PO BID 08/30/20 05/12/21 Unknown History quetiapine 200 mg tablet 1 tab PO BEDTIME 08/30/20 05/12/21 Unknown History sertraline 100 mg tablet 1 tab PO DAILY 08/30/20 05/12/21 Unknown History Exam Exam Date and Time: June 24, 2021 0854 Pertinent Lab Results Pertinent Lab Results: Laboratory Tests 06/15/21 11:05 WBC 6.1 Hgb 8.6 L Hct 28.9 L Plt Count 287 Assessment and Plan Assessment Anesthesia Assessment: Chart Reviewed Documented by User: Rasheeda Lara MD 06/25/21 11:00 PMFSH Past Medical History Medical History Depression Dizziness Menorrhagia (~08/30/20) Microcytic anemia Myoma Family History Family history of problems with anesthesia: No Surgical History Surgical History H/O tubal ligation History of Problems with Anesthesia: No Social History Social History Household Members: Family Housing: House Do you presently have visiting nurse or other home services: No Patient Tobacco Use Status: Never used Tobacco Second Hand Smoke Exposure: No Use of substances other than those prescribed or required for medical reasons: No Are you DNR?: No Advance Directives: No Advance Directives Information Provided: Yes Advance Directives on File: No service: No Current occupational status: employed Sexual orientation: Straight/Heterosexual Gender identity: Female Meds Allergies Allergy/AdvReac Type Severity Reaction Status Date / Time No Known Allergies Allergy Verified 06/24/21 13:12 Home Medications Medication Instructions Recorded Confirmed Last Taken Type buspirone 15 mg tablet 1 tab PO BID 08/30/20 05/12/21 Unknown History quetiapine 200 mg tablet 1 tab PO BEDTIME 08/30/20 05/12/21 Unknown History sertraline 100 mg tablet 1 tab PO DAILY 08/30/20 05/12/21 Unknown History Exam Airway Mallampati Class: II TM Dist: >3cm Neck ROM: Full Assessment and Plan Assessment Anesthesia Assessment: Anesthesia Plan Discussed Final Anesthetic Review Family History of Problems with Anesthesia: No History of Problems with Anesthesia: No NPO: Yes ASA Class: II Final Preanesthetic Review: No Changes in Pt Med Stat, Meds/Allgs Chart Reviewed, Consent Obtained/Reviewed and Anes Risks/Benef Reviewed Patient Risk: Low Procedure Risk: Low Assessment/Block/Sedation in SS: Assess/Block/Sedation-SS Anesthetic Plan Anesthetic Plan: GA and MAC: Disposition: Standard PACU
[2021-06-25 10:49] VITALS: BP 108/50; PULSE 97; RESP 16; TEMP 36.4; O2SAT 100; BMI 28.3
[2021-06-25] MEDS: Lactated Ringers 1,000 ML 100 ML IVCONT (10:53)
[2021-06-25 11:04] LABS: UPreg QC Valid YES; Urine Pregnancy NEGATIVE (NEGATIVE)
--- NOTE | 2021-06-25 11:25 | MHC.SHP ---
Pre-Procedural Eval Section A Date of Service: 06/25/21 The patient is an INPATIENT: No Changes since office visit: No Cold of Flu in the past 2 weeks, No New Medical Problems, No Changes in Medication and No Patient answered all questions The History & Physical has been completed within 30 days and I have reviewed it.: Yes Section B Chief Complaint: Excessive menstruation Allergies: Allergies Allergy/AdvReac Type Severity Reaction Status Date / Time No Known Allergies Allergy Verified 06/24/21 13:12 Plan Diagnosis/Plan: Unchanged I have reviewed the history and physical and performed a pertinent physical examination on my patient. No changes have occurred unless specified.
--- NOTE | 2021-06-25 12:31 | P.BOP_ITS ---
Brief Operative Note Date of Service: 06/25/21 Post-op diagnosis: same Procedure: NovaSure endometrial ablation Under MAC, in a dorsal lithotomy position, the patient was prepped and draped in the usual sterile manner. Bimanual exam prior to prepping revealed a mobile, anteverted uterus. A speculum was placed in the vagina and the anterior lip of the cervix was grasped with a single toothed tenaculum and brought forward. Taking care not to enter deep into the uterus, a sound was passed inside to measure the length of the uterus and cervix. This length was found to be 8 cm. Next, Hegar dilator was inserted into the cervical os to measure the cervical length which was 3 cm. This yielded an endometrial cavity length of 5 cm. A series of Hegar dilators were then inserted sequentially into the cervical os up to a size of 5 mm. The Novasure device was then opened and tested; the fan deployed easily. The instrument was set to the correct cavity length and introduced into the uterine cavity. The fan was slowly deployed with gentle movements to ensure a snug fit within the cavity. The cavity width read 4.5 cm. The measurements were imported and a cavity check was done. The trumpet was then slid down to the cervix and the device was activated. The total burn time was 90 seconds. The fan was retracted and device removed. The fan was examined and revealed charred tissue. The tenaculum was removed and the cervix examined for hemostasis which was achieved using pressure. Finally the speculum was removed. The patient tolerated the procedure well and was brought to the recovery room in a stable condition. At the end of the procedure all sponges and instruments were counted and correct. The blood loss was minimal and there were no complications. Surgeon: Rafael Mccabe MD Anesthesia: MAC Was an School Operations Manager used for this Procedure?: No Estimated blood loss (mL): 0 Pathology: none sent Condition: stable Disposition: PACU
[2021-06-25 12:33] VITALS: BP 88/41; PULSE 67; RESP 16; TEMP 36.1; O2SAT 95
[2021-06-25 12:48] VITALS: BP 98/63; PULSE 79; RESP 16; O2SAT 100
[2021-06-25 13:04] VITALS: BP 109/60; PULSE 67; RESP 16; O2SAT 100
[2021-06-25] MEDS: Acetaminophen 325 MG TABLET 650 MG PO (13:18)
[2021-06-25] MEDS: oxyCODONE HCl Immed Release 5 MG TABLET PO (13:19)
[2021-06-25 13:23] VITALS: BP 120/64; PULSE 62; RESP 16; O2SAT 100
[2021-06-25 13:36] VITALS: BP 117/66; PULSE 67; RESP 16; TEMP 36.1; O2SAT 100
== END 2021-06-25 14:09 | disposition home or self-care (01) ==
PROVIDERS: Visit Provider Obstetrics & Gynecology
PROC: (CPT 58353; principal; 2021-06-25 13:50)
DX: N92.1 Excessive and frequent menstruation with irregular cycle (principal); F32.9 Major depressive disorder, single episode, unspecified; D50.9 Iron deficiency anemia, unspecified; Z98.51 Tubal ligation status; Z79.899 Other long term (current) drug therapy
CPT/HCPCS: 58353; 81025; J1100; J1885; J2250; J2405; J3010

== ENCOUNTER → 2021-07-07 11:55 | Outpatient (BNVA) | payer OTHER, SELFPAY | PROVIDERS: Visit Provider Obstetrics & Gynecology ==

== ENCOUNTER → 2021-08-31 14:46 | Outpatient (BNVA) | payer OTHER, SELFPAY | PROVIDERS: Visit Provider Advanced Practice Midwife ==

== ENCOUNTER 2021-10-05 13:19 | Outpatient (REF) | payer MEDICAID, SELFPAY ==
[2021-10-05 14:49] LABS: Hematocrit 27.7 % (37.0-47.0); Hemoglobin 7.7 g/dl (12.0-16.0); Mean Corpuscular HGB Conc 27.8 g/dl (31.0-35.0); Mean Corpuscular Volume 71.9 fL (80.0-98.0); Mean Platelet Volume 11.1 fL (9.4-12.3); Platelet Count 279 X10*3/uL (160-400); Red Blood Count 3.85 X10*6/uL (4.20-5.50); White Blood Count 8.6 X10*3/uL (4.8-10.8)
== END 2021-10-05 13:20 | disposition home or self-care (01) ==
LOC: HO.LAB 13:19
PROVIDERS: Visit Provider Obstetrics & Gynecology
DX: N92.1 Excessive and frequent menstruation with irregular cycle (principal); D64.9 Anemia, unspecified
CPT/HCPCS: 36415; 85027; 99212

== ENCOUNTER 2021-11-09 14:54 | Outpatient (REF) | payer MEDICAID, SELFPAY ==
--- NOTE | ~2021-11-09 | MM_ITS ---
EXAMINATION: MM SCREENING DIGITAL BREAST TOMOSYNTHESIS, BILATERAL CLINICAL INFORMATION: Screening. Asymptomatic. Family history breast cancer, sister. The lifetime risk of breast cancer based on the Tyrer-Cuzick Model is 21%. COMPARISON: Mammography: 07/06/2018 (new baseline). TECHNIQUE: Digital breast tomosynthesis is performed in both the craniocaudal and mediolateral oblique views along with computer-aided detection (CAD). Synthesized 2D images are generated from the tomosynthesis. FINDINGS: The breasts are heterogeneously dense, which may obscure small masses (ACR BI-RADS breast composition Category c). Parenchymal pattern is similar to prior new baseline exam. There is no interval mass or architectural abnormality or abnormal calcifications. The skin contours are smooth. There are benign-appearing coarse capsular calcifications left axillary node, partially imaged on the on prior exam 2018. This may be related to old granulomatous changes or tattoo artifact. No significant changes. MM/MM tomosynthesis screening BI IMPRESSION: There are no significant changes from prior study. ASSESSMENT: BI-RADS 2: Benign RECOMMENDATION: Routine annual mammography screening. This patient's information was entered into a reminder system with a target due date for their next mammogram.
== END 2021-11-09 14:55 | disposition home or self-care (01) ==
LOC: HO.MAMMO 14:54
PROVIDERS: Visit Provider Obstetrics & Gynecology
DX: Z12.31 Encounter for screening mammogram for malignant neoplasm of breast (principal)
CPT/HCPCS: 77063; 77067

== ENCOUNTER 2024-11-07 15:17 | Outpatient (REF) | payer MEDICAID, SELFPAY ==
[2024-11-07 16:00] LABS: MANUAL DIFF FLAG NO
[2024-11-07 16:10] LABS: Basophils Absolute Auto 0.1 X10*3/uL (0.0-0.2); Basophils Percent Auto 0.5 % (0-2); Eosinophils Absolute Auto 0.2 X10*3/uL (0.0-0.4); Hematocrit 40.3 % (37.0-47.0); Hemoglobin 13.2 g/dl (12.0-16.0); Imm Gran Abs Auto 0.02 X10*3/uL (0.00-0.03); Imm Gran Pct Auto 0.2 % (0.0-0.4); Lymphocytes Percent Auto 42.8 % (20-40); Mean Corpuscular HGB Conc 32.8 g/dl (31.0-35.0); Mean Corpuscular Hemoglobin 30.3 pg (27.0-33.0); Mean Corpuscular Volume 92.4 fL (80.0-98.0); Mean Platelet Volume 10.9 fL (9.4-12.3); Monocytes Absolute Auto 0.6 X10*3/uL (0.1-1.2); Monocytes Percent Auto 6.2 % (2-11); Neutrophils Absolute Auto 4.5 x10*3/uL (2.0-8.3); Neutrophils Percent Auto 48.3 % (45-73); Platelet Count 275 X10*3/uL (160-400); Red Blood Count 4.36 X10*6/uL (4.20-5.50); Red Cell Distribution Width 12.9 % (11.0-16.0); White Blood Count 9.3 X10*3/uL (4.8-10.8)
[2024-11-07 16:26] LABS: Estimated Average Glucose 108 mg/dL; Hemoglobin A1C 124.2717 umol/L; Hemoglobin A1c % 5.4 % (<6.0)
[2024-11-07 16:31] LABS: Alanine Aminotransferase 23 U/L (0-31); Albumin Level 4.1 g/dL (3.5-5.0); Anion Gap 12 (12-20); Aspartate Amino Transferase 37 U/L (5-31); Bilirubin Total 0.3 mg/dL (0.0-1.0); Blood Urea Nitrogen 8 mg/dL (9-16); Calcium 9.4 mg/dL (8.4-10.2); Carbon Dioxide 27 mmol/L (22-29); Chloride 106 mmol/L (96-108); Cholesterol 207 mg/dL (<200); Estimated Glomerular Filt Rate > 60; Glucose Random 100 mg/dL (60-115); HDL Cholesterol 35 mg/dL (>40); LDL Cholesterol Calculated 118 mg/dL (<100); Potassium 3.8 mmol/L (3.3-5.1); Sodium 141 mmol/L (135-145); Total Protein 7.3 g/dL (6.5-8.0); Triglycerides 273 mg/dL (<150)
[2024-11-07 16:50] LABS: Alkaline Phosphatase 115 U/L (39-117); TSH reflex Free T4 1.13 uIU/mL (0.32-4.0)
== END 2024-11-07 15:18 | disposition home or self-care (01) ==
LOC: HO.HHCL 15:17
PROVIDERS: Visit Provider Nurse Practitioner Family
DX: E66.811 Obesity, class 1 (principal); Z68.33 Body mass index [BMI] 33.0-33.9, adult
CPT/HCPCS: 36415; 80053; 80061; 83036; 84443; 85025

== ENCOUNTER 2025-05-24 06:57 | Outpatient (REF) | payer MEDICAID, SELFPAY ==
[2025-05-24 08:22] LABS: Hemoglobin A1C 130.5158 umol/L; Total Hemoglobin (HGBA1C) 3521.6224 umol/L
[2025-05-24 09:12] LABS: Alanine Aminotransferase 42 U/L (0-31); Albumin Level 4.3 g/dL (3.5-5.0); Alkaline Phosphatase 103 U/L (39-117); Anion Gap 13 (12-20); Aspartate Amino Transferase 28 U/L (5-31); Blood Urea Nitrogen 9 mg/dL (9-16); Calcium 9.2 mg/dL (8.4-10.2); Carbon Dioxide 24 mmol/L (22-29); Chloride 108 mmol/L (96-108); Cholesterol 217 mg/dL (<200); Estimated Glomerular Filt Rate > 60; HDL Cholesterol 31 mg/dL (>40); Potassium 3.6 mmol/L (3.3-5.1); Sodium 141 mmol/L (135-145); Total Protein 7.3 g/dL (6.5-8.0); Triglycerides 245 mg/dL (<150)
== END 2025-05-24 06:58 | disposition home or self-care (01) ==
LOC: HO.LAB 06:57
PROVIDERS: PCP Nurse Practitioner Family; Visit Provider Nurse Practitioner Family
DX: I10 Essential (primary) hypertension (principal)
CPT/HCPCS: 36415; 80053; 80061; 83036

== ENCOUNTER 2025-06-13 14:20 | Outpatient (REF) | payer MEDICAID, SELFPAY | END 2025-06-13 14:21 | disposition home or self-care (01) | LOC: HO.HHCLNP 14:20 | PROVIDERS: Visit Provider Nurse Practitioner Family | DX: R30.0 Dysuria (principal) | CPT/HCPCS: 87086; 87088; 87186 ==